=== PATIENT | male | born 1975 | race Caucasian/White ===

== ENCOUNTER 2021-01-02 20:26 | Emergency (ER) | payer MEDICAID ==
[~2021-01-02] VITALS: Ht 190.5 cm; Wt 68.0 kg
[2021-01-02 21:32] VITALS: BP 128/76
[2021-01-02] MEDS ORDERED: IBUP-1955 PO (22:20)
== END 2021-01-02 22:49 | disposition home or self-care (01) ==
LOC: ER 20:28
DX: S92.531A Displaced fracture of distal phalanx of right lesser toe(s), initial encounter for closed fracture (principal); I10 Essential (primary) hypertension; Z90.89 Acquired absence of other organs; Z60.2 Problems related to living alone; W22.8XXA Striking against or struck by other objects, initial encounter; Y93.89 Activity, other specified; Y92.89 Other specified places as the place of occurrence of the external cause; Y99.8 Other external cause status
CPT/HCPCS: 73660-TC